=== PATIENT | female | born 1955 | race Caucasian/White ===

== ENCOUNTER 2022-12-08 11:45 | Outpatient (CLI) | payer MEDICARE | END 2022-12-08 11:46 | disposition home or self-care (01) | LOC: SCSMRI 11:45 | PROVIDERS: ATTEND Nurse Practitioner Family | DX: M50.31 Other cervical disc degeneration, high cervical region (principal); M48.02 Spinal stenosis, cervical region; M47.812 Spondylosis without myelopathy or radiculopathy, cervical region; M50.321 Other cervical disc degeneration at C4-C5 level; M47.813 Spondylosis without myelopathy or radiculopathy, cervicothoracic region | CPT/HCPCS: 72141 ==